=== PATIENT | female | born 1935 | race Caucasian/White ===

== ENCOUNTER 2017-02-03 12:34 | Emergency (ER) | payer MEDICARE, BC ==
[~2017-02-03] VITALS: Ht 167.6 cm; Wt 116.6 kg
[~2017-02-03 12:34] MED LIST: ARMO120T PO; ATEN25TA PO; METF500T PO; ROSU20 PO
[2017-02-03 12:41] VITALS: BP 160/87; PULSE 57; RESP 17; TEMP 97.9; O2SAT 95
[2017-02-03] MEDS ORDERED: LEVO.1 PO (13:40)
[2017-02-03] MEDS ORDERED: LISI-515 PO (13:40)
--- NOTE | 2017-02-03 13:51 | PD ---
HPI Chief Complaint: Respiratory Symptoms Time Seen by Provider: 13:39 Travel History International Travel<30 days: No Contact w/Intl Traveler<30days: No Traveled to known affect area: No History of Present Illness HPI Patient presents with shortness of breath since last night. In addition she has some mild nasal congestion. Denies nausea vomiting diarrhea or fever. Denies cough. Denies any history of lung disease. Denies any new chest pain urinary or bowel symptoms. Denies history of cardiac disease. Complaints of general arthropathy's as well. 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 Menopausal: Yes Past Surgical History Abdominal Surgery: Yes (MINDI) AICD: No Cardiac Surgery: No Cholecystectomy: Yes Ear Surgery: No Endocrine Surgery: No Eye Surgery: No Gynecologic Surgery: Yes (hysterectomy & 1 OVARY REMOVED) Hysterectomy: Yes Joint Replacement: No Oral Surgery: No Pacemaker: No Thoracic Surgery: No Other Surgery: Yes Social History Alcohol Use: Yes (mix drinks,wine) Tobacco Use: No (20+yrs ago 1 ppd cigs) Substance Use: No Allergies-Medications (Allergen,Severity, Reaction): Coded Allergies: No Known Allergies (Unverified , 02/03/17) Reported Meds & Prescriptions Reported Meds & Active Scripts Active Reported Lisinopril 20 Mg Tab 0 PO DAILY Synthroid (Levothyroxine Sodium) 100 Mcg Tab 100 Mcg PO DAILY Atenolol 25 Mg Tab 25 Mg PO HS Crestor (Rosuvastatin Calcium) 20 Mg Tab 20 Mg PO HS Metformin (Metformin HCl) 500 Mg Tab 500 Mg PO BIDPC With meals Review of Systems General / Constitutional: No: Fever Eyes: No: Visual changes HENT: No: Headaches Cardiovascular: No: Chest Pain or Discomfort Respiratory: Positive: Shortness of Breath Gastrointestinal: No: Abdominal Pain Genitourinary: No: Dysuria Musculoskeletal: No: Pain Skin: No Rash Neurologic: No: Weakness Psychiatric: No: Depression Endocrine: No: Polydipsia Hematologic/Lymphatic: No: Easy Bruising Physical Exam Narrative GENERAL: Well-nourished, well-developed patient. SKIN: Warm and dry. HEAD: Normocephalic. EYES: No scleral icterus. No injection or drainage. NECK: Supple, trachea midline. No JVD or lymphadenopathy. CARDIOVASCULAR: Regular rate and rhythm without murmurs, gallops, or rubs. RESPIRATORY: Breath sounds equal bilaterally. No accessory muscle use. GASTROINTESTINAL: Abdomen soft, non-tender, nondistended. MUSCULOSKELETAL: No cyanosis, or edema. BACK: Nontender without obvious deformity. No CVA tenderness. Data Data Last Documented VS Vital Signs Date Time Temp Pulse Resp B/P Pulse Ox O2 Delivery O2 Flow Rate FiO2 02/03/17 12:41 97.9 57 17 160/87 95 Orders Electrocardiogram (02/03/17 13:39) Chest, Single Ap (02/03/17 13:39) [facility] Medical Decision Making Medical Screen Exam Complete: Yes Emergency Medical Condition: Yes Differential Diagnosis Dyspnea, heart failure, viral respiratory infection Narrative Course Assessment and plan discussed with patient at bedside. Chest x-ray shows no acute cardio primary process. EKG does reveal some bradycardia with first degree AV block. Diagnosis Primary Impression: Dyspnea Qualified Code: R06.02 - Shortness of breath Patient Instructions: General Instructions Additional Instructions: Encouraged [id number] antihistamine. Encouraged rest fluids and Motrin. Encouraged to follow-up with PCP to assess control of her thyroid Med/Other Pt SpecificInfo: No Meds Exist/No RX given Disposition: 01 DISCHARGE HOME Condition: Good Pro Dias MD Feb 03, 2017 13:51
--- NOTE | 2017-02-03 14:29 | RADHPO ---
EXAM DATE/TIME: 02/03/2017 13:50 [facility] COMPARISON: CHEST SINGLE AP, November 28, 2015, 12:25. INDICATIONS : Short of breath, jaw pain MEDICAL HISTORY : Diabetes mellitus type II. SURGICAL HISTORY : None. ENCOUNTER: Initial ACUITY: 1 day PAIN SCORE: 6/10 LOCATION: Bilateral chest FINDINGS: The heart size is mildly enlarged. The lungs are clear. No effusion is seen. There is some calcificat ion seen adjacent to the left humeral head potentially from calcific tendinitis. CONCLUSION: Mild cardiomegaly. Sim Stout MD on February 03, 2017 at 14:27 Board Certified Radiologist. This report was verified electronically.
--- NOTE | 2017-02-04 14:56 | EKG ---
Date Performed: 02/03/2017 Time Performed: 13:49:40 PTAGE: 81 years EKG: Sinus bradycardia with 1st degree A-V block Generalized low QRS voltages Abnormal ECG Royce red to prior tracing no significant change PREVIOUS TRACING : 11/28/2015 17.49 DOCTOR: Rosetta Cotter Interpretating Date/Time 02/04/2017 14:50:14
== END 2017-02-03 14:54 | disposition home or self-care (01) ==
LOC: PHED 12:34
DX: R06.02 Shortness of breath (principal); F41.9 Anxiety disorder, unspecified; E78.00 Pure hypercholesterolemia, unspecified; E11.9 Type 2 diabetes mellitus without complications; I10 Essential (primary) hypertension; E04.9 Nontoxic goiter, unspecified
CPT/HCPCS: 71010; 93005